=== PATIENT | female | born 1965 | race Caucasian/White ===

== ENCOUNTER 2017-12-25 22:26 | Emergency (ER) | payer BC ==
[2017-12-25] MEDS ORDERED: Fluorescein Opthalmic Strip ONE (23:24)
--- NOTE | 2017-12-26 00:04 | RAD ---
PORTABLE AP CHEST X-RAY 12/25/17 HISTORY: Throat swelling, open heart surgery one month ago. COMPARISON: None available. FINDINGS: Postsurgical changes related to median sternotomy are noted with suggestion of cardiac valve replacem ent. The cardiac silhouette is within normal limits for the portable technique of the study. Central pulmonary arteries are prominent and there is mass-like density in the left hilar region. There is bi apical pleural thickening asymmetrically greater on the left. Lungs are otherwise clear. No pleural e ffusion is seen. Osseous structures appear intact. IMPRESSION: Mass-like density in the left hilar region. CT scan thorax is recommended for further evaluation. Code T POS: ROBBIE
--- NOTE | 2017-12-26 00:09 | RAD ---
TWO VIEWS NECK SOFT TISSUES 12/25/17 HISTORY: Open heart surgery one month ago. Throat pain. Concerned about swelling. COMPARISON: None available. FINDINGS: The prevertebral soft tissues are within normal limits. The epiglottis and aryepiglottic folds appear to be within normal limits. Degenerative changes are seen in the spine. There is biapical pleural th ickening asymmetrically greater on the left. Partial visualization of the median sternotomy wires is noted. Degenerative changes are present in the cervical spine. IMPRESSION: 1. Grossly normal neck soft tissues. 2. Asymmetric biapical pleural thickening with greater degree of pleural thickening on the left. Please see chest x-ray obtained on this date for further details and recommendations. POS: ROBBIE
[2017-12-26 00:19] LABS: #Eosinphils 0.1 thou/uL (0.0-0.7); #Lymphocytes 1.7 thou/uL (1.20-3.40); #Monocytes 0.7 thou/uL (0.11-0.59); #Neutrophils 3.8 thou/uL (1.40-6.50); %Basophils 0.7 % (0.0-1.0); %Eosinophils 1.5 % (0.0-10.0); %Lymphocytes 26.5 % (21.0-51.0); %Monocytes 11.3 % (0.0-10.0); Hemoglobin 12.2 g/dL (12.0-16.0); Mean Corpuscular HGB CONC 33.2 g/dL (32.0-36.0); Mean Corpuscular Hemoglobin 29.5 pg (27.0-31.0); Mean Corpuscular Volume 88.8 fL (78.0-98.0); Mean Platelet Volume 7.3 fL (7.4-10.4); Platelet Count 283 thou/uL (130-400); RBC Distribution Width 11.9 % (11.5-14.5); Red Blood Cell (RBC) Count 4.13 mill/uL (4.20-5.40); White Blood Cell (WBC) Count 6.4 thou/uL (4.8-10.8)
[2017-12-26 00:40] LABS: ALT (SGPT) 33 U/L (8-55); AST (SGOT) 32 U/L (5-34); Albumin 4.4 g/dL (3.5-5.0); Alkaline Phosphatase 88 U/L (40-150); Anion Gap 12 mmol/L (10-20); BUN (Urea Nitrogen) 16 mg/dL (9.8-20.1); Calc. Creatinine Clearance 0 mL/min (70-130); Calcium 9.7 mg/dL (7.8-10.44); Carbon Dioxide 26 mmol/L (22-29); Chloride 105 mmol/L (98-107); Estimated GFR-MDRD 74; Globulin 3.5 g/dL (2.4-3.5); Glucose 97 mg/dL (70-105); Potassium 3.8 mmol/L (3.5-5.1); Protein, Total 7.9 g/dL (6.0-8.3); Sodium 139 mmol/L (136-145)
[2017-12-26 00:44] LABS: Troponin I Less than 0.010 ng/mL (< 0.028)
[2017-12-26 04:14] LABS: Troponin I Less than 0.010 ng/mL (< 0.028)
== END 2017-12-26 04:10 | disposition home or self-care (01) ==
LOC: ERS 22:26 → EEVIPCON 22:26 → ERS 12-26 04:10
DX: R07.0 Pain in throat (principal); R94.31 Abnormal electrocardiogram [ECG] [EKG]; Z79.82 Long term (current) use of aspirin
CPT/HCPCS: 36415; 70360; 71045; 80053; 82553; 84484; 85025; 93005

== ENCOUNTER 2019-03-09 10:09 | Outpatient (CLI) | payer BC ==
--- NOTE | 2019-03-09 10:43 | ULT ---
EXAM: Bilateral lower extremity venous ultrasound HISTORY: Chronic venous insufficiency COMPARISON: None TECHNIQUE: Multiplanar grayscale and color Doppler images were obtained in a bilateral lower extremit y venous ultrasound. Spectral analysis of the Doppler waveforms were performed. FINDINGS: The bilateral common femoral vein, profunda femoral veins, superficial femoral veins, and p opliteal veins are normal in appearance without visible thrombus. These vessels demonstrate normal compression, flow, and augmentation. The bilateral posterior tibial veins, profunda femoral veins and greater saphenous veins are patent w ithout evidence of DVT. IMPRESSION: No evidence of DVT in the left or right lower extremity.
== END 2019-03-09 10:10 | disposition home or self-care (01) ==
LOC: SCSULT 10:09
PROVIDERS: ATTEND Family Medicine
DX: I87.2 Venous insufficiency (chronic) (peripheral) (principal)
CPT/HCPCS: 93970

== ENCOUNTER 2019-10-17 12:57 | Outpatient (CLI) | payer BC ==
[2019-10-17] MEDS ORDERED: Magnevist 469MG/ML 20 ML VIAL ONE (13:04)
--- NOTE | 2019-10-17 14:50 | MRI ---
MRI BRAIN WITH AND WITHOUT CONTRAST: Date: 10/17/2019 INDICATION: Ringing left ear. TECHNIQUE: Internal auditory canal protocol was followed with images pre and postcontrast. FINDINGS: Ventricles have normal size and position. There is no evidence of restricted diffusion. No evidence o f mass or edema. No white matter abnormality. Review of images through the internal auditory canal show normal appearing 7th and 8th cranial nerves . There is no evidence of enhancement within either internal auditory canal or along either cerebello pontine angle. No evidence of acoustic schwannoma. No abnormal enhancement seen within the brain. Intracranial internal carotid arteries, proximal cerebral arteries, and basilar arteries show flow-vo ids. The dural venous sinuses are patent. Paranasal sinuses appear clear. Some questionable mucosal thickening in the upper right mastoid air c ells. IMPRESSION: Unremarkable MRI of brain and internal auditory canals. POS: AH
== END 2019-10-17 12:58 | disposition home or self-care (01) ==
LOC: MRI 12:57
PROVIDERS: ATTEND Otolaryngology Plastic Surgery within the Head & Neck
DX: H90.5 Unspecified sensorineural hearing loss (principal)
CPT/HCPCS: 70553; A9579

== ENCOUNTER 2020-08-20 13:59 | Emergency (ER) | payer BC, OTHER ==
[2020-08-20] MEDS ORDERED: Ketorolac Tromethamine 30 MG/ML VIAL ONE (16:13)
== END 2020-08-20 16:30 | disposition home or self-care (01) ==
LOC: ERS 13:59
DX: S37.92XA Contusion of unspecified urinary and pelvic organ, initial encounter (principal); W01.0XXA Fall on same level from slipping, tripping and stumbling without subsequent striking against object, initial encounter
CPT/HCPCS: 72170; 96372; J1885

== ENCOUNTER 2020-10-17 15:26 | Outpatient (CLI) | payer BC | END 2020-10-17 15:27 | disposition home or self-care (01) | LOC: BICRAD 15:26 | PROVIDERS: ATTEND Neurological Surgery | DX: S32.019A Unspecified fracture of first lumbar vertebra, initial encounter for closed fracture (principal) | CPT/HCPCS: 72070; 72100 ==

== ENCOUNTER 2020-12-03 12:59 | Day surgery (SDC) | payer BC ==
[2020-11-30 14:06] VITALS: BMI 27.4
[2020-12-03] MEDS ORDERED: Bacitracin Zinc Ointment 30 gm TUBE ONE (14:27)
[2020-12-03] MEDS ORDERED: Betamet Acet/Betamet Na Ph 30 MG/5 ML VIAL ONE ×2 (14:27→14:36)
[2020-12-03] MEDS ORDERED: Neomycin-Polymyxin 1 ML AMP ONE (14:27)
[2020-12-03] MEDS ORDERED: Bupivacaine PF 0.5% 30 ML VIAL ONE (14:27)
[2020-12-03] MEDS ORDERED: Fentanyl 100 MCG/2 ML VIAL ONE ×2 (14:34→14:44)
[2020-12-03] MEDS ORDERED: Propofol 500 MG/50 ML VIAL ONE (14:45)
[2020-12-03] MEDS ORDERED: Ketorolac Tromethamine 30 MG/ML VIAL ONE (14:55)
[2020-12-03] MEDS ORDERED: Dexamethasone 20 MG/5 ML VIAL ONE (14:55)
[2020-12-03] MEDS ORDERED: Ondansetron PF 4 MG/2 ML Vial ONE (14:55)
== END 2020-12-03 17:30 | disposition home or self-care (01) ==
LOC: SDC 12:59
PROVIDERS: ATTEND Orthopaedic Surgery Hand Surgery
PROC: 01N40ZZ Release Ulnar Nerve, Open Approach (ICD-10-PCS; principal; 2020-12-03)
PROC: 0LB70ZZ Excision of Right Hand Tendon, Open Approach (ICD-10-PCS; principal; 2020-12-03)
DX: M67.441 Ganglion, right hand (principal); G56.81 Other specified mononeuropathies of right upper limb; Z79.899 Other long term (current) drug therapy; Z88.8 Allergy status to other drugs, medicaments and biological substances; Z91.040 Latex allergy status; Z95.2 Presence of prosthetic heart valve
CPT/HCPCS: 88304; J0690; J0702; J1100; J1885; J2405; J2704; J3010; S0020

== ENCOUNTER 2021-06-28 14:00 | Outpatient (CLI) | payer BC | END 2021-06-28 14:01 | LOC: CTENTCT 14:00 | PROVIDERS: ATTEND Specialist | DX: R05.9 Cough, unspecified (principal) | CPT/HCPCS: 70486 ==